=== PATIENT | female | born 1965 | race African-American/Black ===

== ENCOUNTER 2022-03-08 19:51 | Emergency (ER) | payer OTHER ==
[2022-03-08 20:22] VITALS: TEMP 99.8; BMI 25.5
[2022-03-08] MEDS ORDERED: DEXAMETHASONE SOD PHOSPHATE 10 MG/1 ML VIAL IVPUSH ONE (20:54)
[2022-03-08] MEDS ORDERED: ALBUTEROL SO4 2.5/IPRATROPIUM 0.5 INH SOL 3 ML VIAL.NEB. NEB ONE (20:59)
[2022-03-08] MEDS ORDERED: DEXAMETHASONE SOD PHOSPHATE 10 MG/1 ML VIAL ONE (21:00)
[2022-03-08] MEDS: ALBUTEROL SO4 2.5/IPRATROPIUM 0.5 INH SOL 3 ML VIAL.NEB. NEB SCH ×3 (21:11→21:50)
[2022-03-08 21:36] LABS: BASO % 0.6 % (0-2.0); EOS % 9.8 % (0-4.5); HEMATOCRIT 41.4 % (32.4-45.2); HEMOGLOBIN 13.3 GM/dL (10.7-15.3); LYMPH % 8.5 % (8-40); MCH 26.6 pg (25.7-33.7); MCHC 32.2 g/dl (32.0-36.0); MEAN CELL VOLUME 82.8 fl (80-96); MEAN PLT VOLUME 7.7 fl (7.5-11.1); MONO % 8.7 % (3.8-10.2); NEUT % 72.4 % (42.8-82.8); PLATELET COUNT 275 10^3/uL (134-434); WHITE BLOOD COUNT 10.7 K/mm3 (4.0-10.0)
[2022-03-08 22:03] LABS: CHLORIDE 107 mmol/L (98-107); SODIUM 143 mmol/L (136-145)
[2022-03-08 22:04] LABS: CALCIUM 8.5 mg/dL (8.5-10.1)
[2022-03-08 22:06] LABS: ALBUMIN 3.4 g/dl (3.4-5.0); ANION GAP 7 MMOL/L (8-16); BLOOD UREA NITROGEN 9.6 mg/dL (7-18); CO2 29 mmol/L (21-32); GLUCOSE,RANDOM 90 mg/dL (74-106); LIPASE 136 U/L (73-393)
[2022-03-08 22:09] LABS: SGOT/AST 28 U/L (15-37); SGPT/ALT 26 U/L (13-61)
[2022-03-08 22:10] LABS: BILIRUBIN,TOTAL < 0.1 mg/dL (0.2-1); TOT PROT 6.6 g/dl (6.4-8.2)
[2022-03-08 22:12] LABS: ALK PHOS 94 U/L (45-117)
[2022-03-09 00:51] LABS: BLOOD UREA NITROGEN 8.9 mg/dL (7-18); CALCIUM 8.6 mg/dL (8.5-10.1)
[2022-03-09 00:55] LABS: CREATININE 0.9 mg/dL (0.55-1.3)
[2022-03-09 01:55] VITALS: BP 120/78; PULSE 80; RESP 18
== END 2022-03-09 01:55 | disposition home or self-care (01) ==
LOC: JER 19:51
PROC: 3E0F7GC Introduction of Other Therapeutic Substance into Respiratory Tract, Via Natural or Artificial Opening (ICD-10-PCS; principal; 2022-03-08)
PROC: 3E0333Z Introduction of Anti-inflammatory into Peripheral Vein, Percutaneous Approach (ICD-10-PCS; 2022-03-08)
DX: J45.20 Mild intermittent asthma, uncomplicated (principal)
CPT/HCPCS: 0241U-QW; 36415; 71046-TC-FY; 76705-TC; 80048; 80053; 83690; 84484; 85025; 93005; 93010; 99285-25; J1100